=== PATIENT | male | born 1970 | race Caucasian/White ===

== ENCOUNTER 2022-02-03 15:46 | Outpatient (CLI) | payer OTHER | END 2022-02-03 15:47 | disposition home or self-care (01) | LOC: CSHULT 15:46 | PROVIDERS: ATTEND Urology | DX: N20.0 Calculus of kidney (principal); R93.421 Abnormal radiologic findings on diagnostic imaging of right kidney; R93.422 Abnormal radiologic findings on diagnostic imaging of left kidney | CPT/HCPCS: 76770 ==

== ENCOUNTER 2024-07-05 13:07 | Outpatient (CLI) | payer OTHER | END 2024-07-05 13:08 | disposition home or self-care (01) | LOC: CSHULT 13:07 | PROVIDERS: ATTEND Family Medicine Sports Medicine | DX: N20.0 Calculus of kidney (principal); R35.0 Frequency of micturition; Z12.5 Encounter for screening for malignant neoplasm of prostate; N32.9 Bladder disorder, unspecified | CPT/HCPCS: 74018; 76770 ==